=== PATIENT | male | born 1990 | race Hispanic/Latino ===

== ENCOUNTER 2025-01-21 09:47 | Emergency (ER) | payer SELFPAY ==
[~2025-01-21] VITALS: Ht 182.9 cm; Wt 217.7 kg
[2025-01-21 11:19] LABS: BASOPHILS % 0.2 % (0.0-1.0); EOSINOPHILS # (AUTO) 0.1 (0.0-0.4); HEMATOCRIT 45.5 % (38.2-49.6); HEMOGLOBIN 15.7 g/dL (14.0-18.0); LYMPHOCYTES # (AUTO) 1.5 (1.0-3.2); LYMPHOCYTES % 14.8 % (18.0-39.1); MEAN CORPUSCULAR HEMOGLOBIN 30.3 pg (28-32); MEAN CORPUSCULAR HGB CONC 34.5 g/dL (31-35); MEAN CORPUSCULAR VOLUME 87.8 fL (81-99); MONOCYTES # (AUTO) 0.9 (0.2-0.8); MONOCYTES % 8.5 % (4.4-11.3); NEUTROPHILS # (AUTO) 7.6 (2.1-6.9); PLATELET COUNT 148 x10e3/uL (140-360); RED BLOOD COUNT 5.18 x10e6/uL (4.3-5.7); RED CELL DISTRIBUTION WIDTH 12.5 % (11.7-14.4); WHITE BLOOD COUNT 10.18 x10e3/uL (4.8-10.8)
[2025-01-21 11:27] LABS: BILIRUBIN,URINE NEGATIVE (NEGATIVE); CLARITY,URINE CLEAR (CLEAR); COLOR,URINE ORANGE (YELLOW); GLUCOSE, URINE 500 (NEGATIVE); KETONES,URINE 2+ (NEGATIVE); LEUKOCYTE ESTERASE ,URINE NEGATIVE (NEGATIVE); NITRITE,URINE NEGATIVE (NEGATIVE); PH,URINE 6 (5 - 7); PROTEIN,URINE DIPSTICK TRACE (NEGATIVE); URINE UROBILINOGEN 0.2 mg/dL (0.2 - 1)
[2025-01-21 11:33] LABS: RBC,URINE 0-5 /HPF (0-5)
[2025-01-21 11:34] LABS: BACTERIA,URINE FEW /HPF; EPITHELIAL CELLS,URINE FEW /LPF
[2025-01-21] MEDS: SODIUM CHLORIDE 0.9% 1000ML 1,000 ML IV STA ×2 (11:34→15:59)
[2025-01-21 11:45] LABS: ALANINE AMINOTRANSFERASE 62 IU/L (0-55); ALBUMIN 3.5 g/dL (3.5-5.0); ALKALINE PHOSPHATASE 80 IU/L (40-150); ANION GAP 16.2 mmol/L (8-16); BILIRUBIN,TOTAL 1.7 mg/dL (0.2-1.2); BLOOD UREA NITROGEN 11 mg/dL (7-26); BUN/CREATININE RATIO 12 (6-25); CALCIUM 9.3 mg/dL (8.4-10.2); CARBON DIOXIDE 22 mmol/L (22-29); CHLORIDE 102 mmol/L (98-107); CREATINE KINASE 63 IU/L (30-200); CREATININE, SERUM 0.95 mg/dL (0.72-1.25); EST GLOMERULAR FILTRATION RATE 106 ML/MIN (>=60); GLUCOSE 326 mg/dL (74-118); INR 0.95; POTASSIUM 4.2 mmol/L (3.5-5.1); PROTHROMBIN TIME 13.3 seconds (11.9-14.5); SODIUM 136 mmol/L (136-145); TOTAL PROTEIN 7.1 g/dL (6.5-8.1)
[2025-01-21 11:46] LABS: PARTIAL THROMBOPLASTIN TIME 26.4 seconds (23.8-35.5)
[2025-01-21 11:53] LABS: TROPONIN I < 0.001 ng/mL (0-0.300)
[2025-01-21] MEDS ORDERED: SODIUM CHLORIDE 0.9% 1000ML 1,000 ML ONE (15:57)
[2025-01-21 16:14] VITALS: PULSE 116; RESP 21; TEMP 97.9; O2SAT 99
[2025-01-21] MEDS ORDERED: FLUCONAZOLE100 MG PO (16:36)
[2025-01-21] MEDS ORDERED: METFORMIN HCL500 MG PO (16:36)
[2025-01-21] MEDS ORDERED: AMOX TR-K CLV1 EAC2 PO (16:36)
[2025-01-21] MEDS ORDERED: DOXYCYCLINE HY100 MG PO (16:36)
[2025-01-21 16:52] VITALS: PULSE 112
[2025-01-21] MEDS ORDERED: IOPAMIDOL 370 MG/ML 100 ML INFUS..BTL INJ ONE (16:58)
== END 2025-01-21 16:55 | disposition home or self-care (01) ==
LOC: ER 10:12
DX: N49.2 Inflammatory disorders of scrotum (principal); I86.1 Scrotal varices; E11.65 Type 2 diabetes mellitus with hyperglycemia; E66.9 Obesity, unspecified
CPT/HCPCS: 36415; 74177; 76870; 80053; 81001; 82550; 83735; 83880; 84484; 85025; 85610; 85730; 87040; 87086; 93005; 93976; 99284; J7030; Q9967